=== PATIENT | male | born 1930 | race Caucasian/White ===

== ENCOUNTER 2016-07-25 16:42 | Inpatient (IN) | payer MEDICARE ==
[2016-07-25] MEDS ORDERED: Sodium Chloride 0.9% 1,000 ML IV STA (17:35)
--- NOTE | 2016-07-25 17:48 | ED PDOC ---
HPI: General Adult Time Seen by Provider: 07/25/16 17:27 Chief Complaint (Nursing): Syncope Chief Complaint (Provider): dizziness, near syncope History Per: Patient, Family () Additional Complaint(s): 83 year old male presents to emergency department for evaluation status post having near syncopal episode earlier today. Patient woke up feeling dizzy and when he tried to get up and out of bed his noticed him leaning to one side and he seemed unsteady. Patient sat down before he actually fell. Throughout the morning continued to notice the patient was walking while holding onto the arzate because he felt as if he was going to fall. Patient did not fall or sustain any head injury. One hour prior to arrival, called ambulance and patient was brought here further evaluation. Patient complains of generalized malaise and feels dizzy. He denies any headache, vision changes, chest pain, shortness of breath or dyspnea on exertion. No fever or chills, no dysuria, nausea, vomiting, diarrhea or constipation. No recent travel, no known sick contacts. Past Medical History Reviewed: Historical Data, Nursing Documentation, Vital Signs Vital Signs: Last Vital Signs Temp 100.1 F H 07/25/16 18:07 Pulse 86 07/25/16 16:51 Resp 20 07/25/16 16:51 BP 130/86 07/25/16 16:51 Pulse Ox 97 07/25/16 19:24 - Medical History PMH: Diabetes, HTN - Surgical History Surgical History: Appendectomy Other surgeries: bilateral knee replacement - Family History Family History: States: No Known Family Hx - Living Arrangements Living Arrangements: With Family - Social History Current smoker - smoking cessation education provided: No Alcohol: None Drugs: Denies - Allergies Allergies/Adverse Reactions: Allergies Allergy/AdvReac Type Severity Reaction Status Date / Time No Known Allergies Allergy Verified 07/25/16 16:55 Review of Systems ROS Statement: Except As Marked, All Systems Reviewed And Found Negative Constitutional: Positive for: Other (generalized malaise). Negative for: Fever , Chills Cardiovascular: Negative for: Chest Pain, Palpitations Respiratory: Negative for: Cough, Shortness of Breath Gastrointestinal: Negative for: Nausea, Vomiting Neurological: Positive for: Dizziness. Negative for: Weakness, Numbness, Incoordination, Change in Speech, Confusion, Seizures, Altered Mental Status, Headache Physical Exam - Reviewed Nursing Documentation Reviewed: Yes Vital Signs Reviewed: Yes - Physical Exam Appears: Positive for: Well, Non-toxic, No Acute Distress Head Exam: Positive for: ATRAUMATIC, NORMAL INSPECTION Skin: Positive for: Normal Color. Negative for: Rash Eye Exam: Positive for: Normal appearance, EOMI, PERRL Neck: Positive for: Normal, Painless ROM Cardiovascular/Chest: Positive for: Regular Rate, Rhythm Respiratory: Positive for: Normal Breath Sounds. Negative for: Respiratory Distress Gastrointestinal/Abdominal: Positive for: Soft. Negative for: Tenderness, Distended, Guarding, Rebound Extremity: Positive for: Normal ROM. Negative for: Pedal Edema, Calf Tenderness Neurologic/Psych: Positive for: Alert, outpatient physical therapist assistant II-XII (normal), Oriented. Negative for: Motor/Sensory Deficits, Aphasia, Facial Droop - Laboratory Results Result Diagrams: 07/25/16 18:00 07/25/16 18:00 - ECG O2 Sat by Pulse Oximetry: 97 Pulse Ox Interpretation: Normal - Other Rad Bedside chest X-Ray: Interpreted by Me, Viewed By Me X-Ray Interpretation: no acute infiltrate Medical Decision Making Medical Decision Makin86 year old with dizziness and near syncopal episode. Patient is awake and alert x 3. Low grade temp noted. Plan: EKG CT head CXR CBC CMP Trop IVF Flu swab PO tylenol Disposition - Clinical Impression Clinical Impression: Dizziness, Near syncope - Patient ED Disposition Is Patient to be Admitted: Transfer of Care - Disposition Disposition: Transfer of Care Disposition Time: 20:00 Condition: FAIR Patient Signed Over To: Quan Kitchen Handoff Comments: Signed out pending diagnostic testing results and final disposition Results - Lab Results Lab Results: 07/25/16 07/25/16 07/25/16 18:00 18:00 18:00 WBC 11.0 H RBC 3.81 L Hgb 12.5 Hct 37.4 MCV 98.4 H MCH 32.9 H MCHC 33.4 RDW 12.8 Plt Count 151 MPV 9.0 Neut % (Auto) 72.1 Lymph % (Auto) 17.8 L [place] % (Auto) 9.7 Eos % (Auto) 0.1 Baso % (Auto) 0.3 Neut # 7.9 H Lymph # 2.0 [place] # 1.1 H Eos # 0.0 Baso # 0.0 Sodium 138 Potassium 4.0 Chloride 102 Carbon Dioxide 25 Anion Gap 15 BUN 16 Creatinine 0.8 Est GFR ( Amer) > 60 Est GFR (Non-Af Amer) > 60 Random Glucose 140 H Calcium 9.6 Total Bilirubin 1.1 AST 20 ALT 27 Alkaline Phosphatase 61 Troponin I < 0.0120 Total Protein 7.5 Albumin 4.4 Globulin 3.1 Albumin/Globulin Ratio 1.4 Influenza Typ A,B (EIA) Negative for flu a/b
[2016-07-25 18:16] LABS: ALB/GLOB RATIO 1.4 (1.0-2.1); ALKALINE PHOSPHATASE 61 U/L (38-126); ALT/SGPT 27 U/L (21-72); AST/SGOT 20 U/L (17-59); BILIRUBIN,TOTAL 1.1 mg/dl (0.2-1.3); BLOOD UREA NITROGEN 16 mg/dl (9-20); CALCIUM 9.6 mg/dL (8.4-10.2); CARBON DIOXIDE 25 mmol/L (22-30); CHLORIDE 102 mmol/L (98-107); GFR AFRICAN-AMERICAN > 60; GLUCOSE,RANDOM 140 mg/dL (75-110); SODIUM 138 mmol/l (132-148); TOTAL PROTEIN 7.5 G/DL (6.3-8.2)
[2016-07-25 18:25] LABS: BASO % 0.3 % (0.0-2.0); EOS % 0.1 % (0.0-4.0); HEMATOCRIT 37.4 % (35.0-51.0); LYMPH % 17.8 % (20.0-40.0); MEAN CELL VOLUME 98.4 fl (80.0-94.0); MEAN CORPUSCULAR HEMOGLOBIN 32.9 pg (27.0-31.0); MEAN CORPUSCULAR HGB CONC 33.4 g/dL (33.0-37.0); MONO # 1.1 K/uL (0.0-0.8); MONO % 9.7 % (0.0-10.0); NEUT # 7.9 K/uL (1.8-7.0); NEUT % 72.1 % (50.0-75.0); RED CELL DISTRIBUTION WIDTH 12.8 % (11.5-14.5)
--- NOTE | 2016-07-25 21:00 | CT ---
EXAM: CT Head Without Intravenous Contrast CLINICAL HISTORY: 86 years old, male; Signs and symptoms; Other: Near syncope; Additional info: Dizziness, near syncope TECHNIQUE: Axial computed tomography images of the head/brain without intravenous contrast. This CT exam was performed using one or more of the following dose reduction techniques: automated exposure control, adjustment of the mA and/or kV according to patient size, and/or use of iterative reconstruction technique. Coronal and sagittal reformatted images were created and reviewed. COMPARISON: CT - HEAD^HEAD ROUTINE (ADULT) 11/10/2009 9:44:13 AM FINDINGS: Brain: Mild atrophy. No intracranial hemorrhage. No mass. No definite edema. Ventricles: No hydrocephalus. Bones/joints: No acute fracture. Soft tissues: Unremarkable. Vasculature: Mild atherosclerotic disease of intracranial arteries. Sinuses: Scattered minimal mucosal thickening. Mastoid air cells: No mastoid effusion. Orbits: Unremarkable as visualized. IMPRESSION: 1. No acute intracranial abnormality. 2. Incidental/non-acute findings are described above.
--- NOTE | 2016-07-25 21:45 | ED PDOC ---
- Laboratory Results Result Diagrams: 07/25/16 18:00 07/25/16 18:00 - ECG O2 Sat by Pulse Oximetry: 97 Medical Decision Making Medical Decision Making: pt signed out to me pending CT head which shows no acute abnormality. labs unrevealing. ekg nsr at 86. no acute changes. cxr nad. will admit for observation. pmd Dr. Perez. FP resident will eval. Disposition - Clinical Impression Clinical Impression: Dizziness, Near syncope - POA Present On Arrival: None - Disposition Disposition: Hospitalized as Observation Patient Disposition Time: 21:45 Condition: STABLE
--- NOTE | 2016-07-25 21:57 | ED PDOC ---
NIHSS Stroke Scale - Date/Time Evaluation Performed Date Performed: 07/25/16 Time Performed: 22:05 When Was NIHSS Performed: Baseline - How Severe is the Stroke Level of Consciousness: 0=Alert LOC to Questions: 0=Both comments correct LOC to commands: 0=Obeys both correctly Best Gaze: 0=Normal Visual: 0=No visual loss Facial: 0=Normal Motor Arm - Left: 0=No drift Motor Arm - Right: 0=No drift Motor Leg - Left: 0=No drift Motor Leg - Right: 0=No drift Limb Ataxia: 0=Absent Sensory: 0=Normal Best Language: 0=No aphasia Dysarthia: 0=Normal articulation Extinction & Inattention (Neglect): 0=Normal, no object Score: 0 rTPA Inclusion/Exclusion - Inclusion Criteria for Altepase Patient is 18 years or Older: Yes The Clinical Diagnosis of Ischemic Stroke That is Causing a Potentially Disabling Neurological Deficit: No Time of Onset is Well Established to be Less Than 270 Minute Before Treatment Would Begin: No Risk/Benefit Discussed With Patient/Family Member Present: Yes - Exclusion Criteria for Altepase Uncontrolled Hypertension at Time of Treatment (Systolic BP above 185 or Diastolic BP above 110 mmHg): No Active Internal Bleeding: No Known Bleeding Diathesis Including but Not Limited to: Platelets Below 100,000/ mm,PTT Above 40 sec After Heparin Use, Current Use of Oral Anitcoagulant With INR Greater Than 1.7 or PT Greater Than 15 secs: No Evidence of an Intracranial Hemorrhage: No Evidence of Major Acute Infarct With Signs Greater Than 1/3 MCA Territory: No Suspicion of Subarachnoid Hemorrhage on Pretreatment Evaluation Even if CT Head Negative For Hemorrhage: No - Warning to TPA With Conditions Following Conditions Weighed Against Anticipated Benefit: No Additional Condition (For 3-4.5 Hour Window): Age Greater Than 80 Past Medical History Vital Signs: Last Vital Signs Temp 100.1 F H 07/25/16 18:07 Pulse 86 07/25/16 16:51 Resp 20 07/25/16 16:51 BP 130/86 07/25/16 16:51 Pulse Ox 97 07/25/16 21:45 - Medical History PMH: Diabetes, HTN, Hypercholesterolemia - Surgical History Surgical History: Appendectomy Other surgeries: bilateral knee replacement - Family History Family History: States: No Known Family Hx - Social History Current smoker - smoking cessation education provided: No Alcohol: None Drugs: Denies - Allergies Allergies/Adverse Reactions: Allergies Allergy/AdvReac Type Severity Reaction Status Date / Time No Known Allergies Allergy Verified 07/25/16 16:55 - Laboratory Results Result Diagrams: 07/25/16 18:00 07/25/16 18:00 - ECG O2 Sat by Pulse Oximetry: 97 Disposition - Clinical Impression Clinical Impression: Dizziness, Near syncope - Disposition Disposition: Transfer of Care Disposition Time: 21:45 Condition: STABLE - POA Present On Arrival: None
--- NOTE | 2016-07-25 22:24 | CP.PCM.HP ---
Addendum entered and electronically signed by Cesia De Jesus MD 07/26/16 06:06: Please note: head CT done in ED show no evidence of acute disease or hemorrhage Original Note: <Cesia De Jesus - Last Filed: 07/25/16 22:58> History of Present Illness - History of Present Illness History of Present Illness: Pt is a 83y/o male with pmhx of non-insulin dependent diabetes, and Hyperlipidemia who presents to emergency department for evaluation following multiple near syncopal episode earlier today. Patient woke up feeling dizzy and when he tried to get up and out of bed his noticed him leaning to one side and he seemed unsteady. Patient sat down before he actually fell. as they were walking to the bus so the could make it to the eye appointment, noticed pt was walking a little different, so she told pt to go back home and get some rest. pt's report the lady at the [facility] told her she saw her on camera walking very strangely this morning, and he almost fell but did not. Patient did not fall or sustain any head injury. Patient complains of generalized malaise and feels dizzy. He denies any headache , vision changes, chest pain, shortness of breath or dyspnea on exertion. No fever or chills, no dysuria, nausea, vomiting, diarrhea or constipation. No recent travel, no known sick contacts. Present on Admission - Present on Admission Any Indicators Present on Admission: Yes History of DVT/PE: No History of Uncontrolled Diabetes: Yes Review of Systems - Review of Systems All systems: reviewed and no additional remarkable complaints except Review of Systems: per HPI Past Patient History - Past Social History Alcohol: None Drugs: Denies - CARDIAC Hx Hypercholesterolemia: Yes Hx Hypertension: Yes - ENDOCRINE/METABOLIC Hx Diabetes Mellitus Type 2: Yes - GENITOURINARY/GYNECOLOGICAL Hx Prostate Problems: Yes - PSYCHIATRIC Hx Substance Use: No - SURGICAL HISTORY Hx Appendectomy: Yes Meds Allergies/Adverse Reactions: Allergies Allergy/AdvReac Type Severity Reaction Status Date / Time No Known Allergies Allergy Verified 07/25/16 16:55 Physical Exam - Constitutional Appears: No Acute Distress - Head Exam Head Exam: NORMOCEPHALIC - Eye Exam Eye Exam: Normal appearance Pupil Exam: NORMAL ACCOMODATION - ENT Exam ENT Exam: Mucous Membranes Moist - Neck Exam Neck exam: Positive for: Normal Inspection - Respiratory Exam Respiratory Exam: Clear to Auscultation Bilateral, NORMAL BREATHING PATTERN. absent: Rhonchi, Wheezes - Cardiovascular Exam Cardiovascular Exam: REGULAR RHYTHM, +S1, +S2 - GI/Abdominal Exam GI & Abdominal Exam: Normal Bowel Sounds, Soft. absent: Tenderness - Extremities Exam Extremities exam: Negative for: calf tenderness, pedal edema - Neurological Exam Neurological exam: Alert, CN II-XII Intact, Oriented x3 - Skin Skin Exam: Normal Color Results - Vital Signs Recent Vital Signs: Last Vital Signs Temp 98.0 F 07/25/16 22:16 Pulse 84 07/25/16 22:16 Resp 18 07/25/16 22:16 BP 140/68 07/25/16 22:16 Pulse Ox 96 07/25/16 22:16 - Labs Result Diagrams: 07/25/16 18:00 07/25/16 18:00 Assessment & Plan - Assessment and Plan (Free Text) Assessment: 86 y/o male with history of HTN, HLD and non-insulin dependent type II diabetes being admitted for dizziness Plan: Dizziness vs TIA NIHSS score 0 not hypoglycemic ordered Carotid ultrasound f/u results lipid panel, f/u results consider Neurology consult Type II Non-Insulin Dependent diabetes Continue Metformin 1000mg BID accucheck BPH resume home medication- finastride 5 mg monitor HLD Atorvastatin 20mg daily diet- diabetic heart healthy dvt prophylaxis- lovenox 40mg SC <Ggae Turcios - Last Filed: 07/26/16 06:55> Results - Vital Signs Recent Vital Signs: Last Vital Signs Temp 98 F 07/26/16 05:00 Pulse 78 07/26/16 05:00 Resp 20 07/26/16 05:00 BP 140/81 07/26/16 05:00 Pulse Ox 96 07/26/16 05:00 - Labs Result Diagrams: 07/25/16 18:00 07/25/16 18:00 Labs: Laboratory Results - last 24 hr 07/25/16 07/26/16 07/26/16 23:10 00:04 05:19 POC Glucose (mg/dL) 136 H 127 H Urine Color Yellow Urine Clarity Clear Urine pH 6.0 Ur Specific [place] [employer] 1.016 Urine Protein Negative Urine Glucose (UA) Neg Urine Ketones Negative Urine Blood Negative Urine Nitrate Negative Urine Bilirubin Negative Urine Urobilinogen 0.2-1.0 Ur Leukocyte Esterase Neg Urine RBC (Auto) 1 Urine Microscopic WBC < 1 Attending/Attestation - Attestation I have personally seen and examined this patient.: Yes I have fully participated in the care of the patient.: Yes I have reviewed all pertinent clinical information: Yes
[2016-07-25 23:18] LABS: RBC URINE 1 /hpf (0-3); URINE BILIRUBIN NEGATIVE (NEGATIVE); URINE BLOOD NEGATIVE (NEGATIVE); URINE COLOR YELLOW (YELLOW); URINE GLUCOSE (UA) NEG (Normal); URINE KETONE NEGATIVE (NEGATIVE); URINE LEUKOCYTE ESTERASE NEG Leu/uL (Negative); URINE PROTEIN NEGATIVE (NEGATIVE); URINE UROBILINOGEN 0.2-1.0 mg/dL (0.2-1.0); WBC URINE < 1 /hpf (0-5)
[2016-07-26 07:41] LABS: ALB/GLOB RATIO 1.4 (1.0-2.1); ALKALINE PHOSPHATASE 50 U/L (38-126); ALT/SGPT 28 U/L (21-72); AST/SGOT 19 U/L (17-59); BILIRUBIN,TOTAL 1.3 mg/dl (0.2-1.3); BLOOD UREA NITROGEN 13 mg/dl (9-20); CALCIUM 9.2 mg/dL (8.4-10.2); CARBON DIOXIDE 27 mmol/L (22-30); CHLORIDE 103 mmol/L (98-107); CHOLESTEROL 123 mg/dL (0-199); GFR AFRICAN-AMERICAN > 60; GLUCOSE,RANDOM 135 mg/dL (75-110); POTASSIUM 4.2 MMOL/L (3.6-5.0); SODIUM 140 mmol/l (132-148); TOTAL PROTEIN 6.8 G/DL (6.3-8.2)
[2016-07-26 07:49] LABS: HEMATOCRIT 34.9 % (35.0-51.0); MEAN CELL VOLUME 96.1 fl (80.0-94.0); MEAN CORPUSCULAR HEMOGLOBIN 33.3 pg (27.0-31.0); MEAN CORPUSCULAR HGB CONC 34.7 g/dL (33.0-37.0); RED CELL DISTRIBUTION WIDTH 12.9 % (11.5-14.5); WHITE BLOOD COUNT 9.2 K/uL (4.8-10.8)
[2016-07-26] MEDS: Enoxaparin 40 mg Syringe SC SCH (09:41)
--- NOTE | 2016-07-26 09:57 | CP.PCM.PN ---
<Uma Nelson - Last Filed: 07/26/16 17:12> Subjective - Date & Time of Evaluation Date of Evaluation: 07/26/16 Time of Evaluation: 07:00 - Subjective Subjective: Patient was seen and examined at bedside. Patient had an uneventful night. Denies chest pain, SOB, dizziness, tinnitus, abdominal pain, palpitation or other complains at this evaluation. Objective - Vital Signs/Intake and Output Vital Signs (last 24 hours): Temp Pulse Resp BP Pulse Ox 98.5 F 72 20 145/67 96 07/26/16 08:20 07/26/16 08:20 07/26/16 08:20 07/26/16 08:20 07/26/16 08:20 - Medications Medications: Current Medications Aspirin (Aspirin Chewable) 81 mg PO DAILY [facility] Last Admin: 07/26/16 09:41 Dose: 81 mg Atorvastatin Calcium (Lipitor) 20 mg PO DAILY [facility] Last Admin: 07/26/16 09:41 Dose: 20 mg Enoxaparin Sodium (Lovenox) 40 mg SC DAILY [facility] PRN Reason: Protocol Last Admin: 07/26/16 09:41 Dose: 40 mg Finasteride (Proscar) 5 mg PO DAILY [facility] Last Admin: 07/26/16 09:41 Dose: 5 mg Metformin HCl (Glucophage) 1,000 mg PO BID [facility] Last Admin: 07/26/16 09:41 Dose: 1,000 mg - Labs Labs: 07/26/16 06:00 07/26/16 05:40 - Constitutional Appears: Non-toxic, No Acute Distress - ENT Exam ENT Exam: Mucous Membranes Moist - Respiratory Exam Respiratory Exam: Clear to Ausculation Bilateral, NORMAL BREATHING PATTERN - Cardiovascular Exam Cardiovascular Exam: REGULAR RHYTHM, +S1, +S2 - GI/Abdominal Exam GI & Abdominal Exam: Soft, Normal Bowel Sounds. absent: Guarding, Rigid, Tenderness - Extremities Exam Extremities Exam: Normal Inspection. absent: Calf Tenderness, Pedal Edema - Neurological Exam Neurological Exam: Alert, Awake, Oriented x3 Neuro motor strength exam: Left Upper Extremity: 5, Right Upper Extremity: 5, Left Lower Extremity: 5, Right Lower Extremity: 5 - Psychiatric Exam Psychiatric exam: Normal Affect, Normal Mood - Skin Skin Exam: Dry, Intact, Normal Color Assessment and Plan - Assessment and Plan (Free Text) Assessment: 86 y/o male with PMHx of NIDDM and Hyperlipidemia admitted with dizziness and unsteady gait for one day. Plan: Dizziness and unsteady gait R/O TIA -Fall precautions -Neuro check every 2 hours -CBC: H/H: 12.1/34.9 -CMP: WNL -F/U carotid/vertebral ultrasound -Neurology consult appreciated. Dr. Miranda. F/U recommendations -Head CT w/o contrast in ED showed: no intracraneal hemorrhage, and no acute changes -Physical therapy evaluation -turn out worker for home health care eval DM type II Non insulin dependednt -Accu-check ACHS -Hold Home Metformin for now -Start LDSS insulin -F/U lipid profile Will monitor DVT prophylaxis Lovenox 40 mg SC <Gage Turcios - Last Filed: 07/27/16 06:45> Objective - Vital Signs/Intake and Output Vital Signs (last 24 hours): Temp Pulse Resp BP Pulse Ox 98.8 F 83 20 138/66 96 07/27/16 05:00 07/27/16 05:00 07/27/16 05:00 07/27/16 05:00 07/27/16 05:00 Intake and Output: 07/26/16 07/27/16 18:59 06:59 Intake Total 650 Balance 650 - Medications Medications: Current Medications Atorvastatin Calcium (Lipitor) 20 mg PO DAILY [facility] Last Admin: 07/26/16 09:41 Dose: 20 mg Clopidogrel Bisulfate (Plavix) 75 mg PO DAILY [facility] Dextrose (Dextrose 50% Inj) 0 ml IV STAT PRN; Protocol PRN Reason: Hyglycemia Protocol Dextrose (Glutose 15) 0 gm PO ONCE PRN; Protocol PRN Reason: Hypoglycemia Protocol Enoxaparin Sodium (Lovenox) 40 mg SC DAILY [facility] PRN Reason: Protocol Last Admin: 07/26/16 09:41 Dose: 40 mg Finasteride (Proscar) 5 mg PO DAILY [facility] Last Admin: 07/26/16 09:41 Dose: 5 mg Folic Acid (Folic Acid) 1 mg PO DAILY [facility] Glucagon (Glucagen Diagnostic Kit) 0 mg IM STAT PRN; Protocol PRN Reason: Hypoglycemia Protocol Insulin Human Regular (Humulin R) 0 units SC [facility] PRN Reason: Protocol Last Admin: 07/26/16 22:26 Dose: Not Given Metformin HCl (Glucophage) 1,000 mg PO BID [facility] Last Admin: 07/26/16 09:41 Dose: 1,000 mg Attending/Attestation - Attestation I have personally seen and examined this patient.: Yes I have fully participated in the care of the patient.: Yes I have reviewed all pertinent clinical information, including history, physical exam and plan: Yes
[2016-07-26] MEDS ORDERED: Dextrose 50% SYRINGE Inj (50 ml) IV PRN (09:59)
[2016-07-26] MEDS ORDERED: Glucagon Recombinant 1 mg Inj IM PRN (09:59)
[2016-07-26] MEDS: Insulin Regular 100 units/ml SC SCH ×3 (11:30→22:26)
--- NOTE | 2016-07-26 13:39 | RAD ---
HISTORY: clearance COMPARISON: No prior. FINDINGS: LUNGS: No active pulmonary disease. PLEURA: No significant pleural effusion identified, no pneumothorax apparent. CARDIOVASCULAR: Normal. OSSEOUS STRUCTURES: No significant abnormalities. VISUALIZED UPPER ABDOMEN: Normal. OTHER FINDINGS: None. IMPRESSION: No active disease.
--- NOTE | 2016-07-26 15:33 | US ---
PROCEDURE: Duplex ultrasound of the carotid and vertebral arteries. HISTORY: dizziness vs TIA COMPARISON: 11/10/2009.. TECHNIQUE: Grayscale, color Doppler and spectral Doppler assessment of the carotid system bilaterally. This includes common carotid, internal carotid arteries Vertebral artery assessment with respect to direction of flow (antegrade or retrograde) FINDINGS: RIGHT carotid system: Assessment of plaque: Heterogeneous plaque formation. Peak systolic ICA velocity: 95.1 cm/sec End-diastolic velocity: 20.8 cm/sec ICA/CCA ratio: 1.1 Vertebral artery flow: Antegrade LEFT carotid system: Assessment of plaque: Heterogeneous plaque formation. Peak systolic ICA velocity: 125.6 cm/sec End-diastolic velocity: 20.7 cm/sec ICA/CCA ratio: 0.8 Vertebral artery flow: Antegrade IMPRESSION: Right ICA degree of stenosis: Less than 50%. No significant interval change compared to the prior examination(s). Left ICA degree of stenosis: 50- 69%. This is progressive disease compared to the prior study from November 10, 2009. Reference Internal Carotid Artery (ICA) Peak Systolic Velocity (PSV) for above: 1. Less than 50% stenosis less than 125 cm/s peak systolic velocity 2. 50-69% stenosis 125-230cm/s peak systolic velocity 3. Greater than 70% but less than near occlusion greater than 230 cm/s peak systolic velocity
--- NOTE | 2016-07-26 20:03 | CON ---
DATE: 07/26/2016 ATTENDING PHYSICIAN: Gage Turcios MD The patient's room #405, bed 2. REASON FOR CONSULTATION: Near syncopal attack. CHIEF COMPLAINT: The patient was brought in to [facility] with a history of frequent tendency to fall. No real fall happened. No history of involuntary movements, no history of focal weakness as per the documentation. From neurological point of view, I was called in to evaluate him for further management. HISTORY OF PRESENT ILLNESS: The patient is a young looking 86-year-old right handed male presenting with lightheadedness and tendency to fall that made him to fall on his right side before he fell, he sat on the chair. The patient's also documented he has difficulty in walking. The patient's saw her on camera walking very strangely this morning. He almost fell but not. He did not have any sustained injury. At present, the patient is complaining of no headache, no visual or bulbar dysfunction. He denies any focal weakness; however, he admits inability to walk good, tendency to fall. No history of involuntary movements, no history of loss of consciousness. No history of bowel or bladder incontinence. PAST MEDICAL HISTORY: Ran-oquiyti-syfrbexxj diabetes mellitus, dyslipidemia, hypertension. PERSONAL HISTORY: Denies smoking or alcohol use. History of prostate problem in the past. REVIEW OF SYSTEMS: As per H and P. MEDICATIONS: Glucagon, metformin, insulin, atorvastatin, Lovenox, clopidogrel, Proscar. PHYSICAL EXAMINATION: VITAL SIGNS: Blood pressure 154/71 minute, mean arterial pressure of 98, respiratory rate 18, temperature 99.1 degrees Fahrenheit, pulse rate 83 runs to 92. NECK: Supple. No carotid bruit. HEART SOUNDS: mild tachycardia with a systolic murmur. EXTREMITIES: No edema in legs. NEUROLOGIC EXAMINATION: MENTAL STATUS EXAMINATION: He is awake, alert, oriented to person and place. At times he seemed to be confused. He is calling her medical secretary receptionist. Then he relates he is in the hospital. He follows 2-step commands. No right and left confusion. Speech is intact. CRANIAL NERVE EXAMINATION: Visual field intact. Pupils react to light. Extraocular movement decreased in all directions. No facial sensory deficit. Mild facial asymmetry manifesting as a flattening of the right nasolabial fold. Hearing is normal. Tongue is midline. Good gag. MOTOR: On outstretched hand with eyes closed, significant drift noted on the right upper extremity with a pronation. However, he was able to lift both lower extremities against gravity. DEEP TENDON REFLEXES: Absent throughout. Plantars are equivocal response on the right side; left side was downgoing. SENSORY EXAMINATION: Responds to pain symmetrically on both sides. 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 COORDINATION: Wbrsel-gy-ojug testing showed mild dysmetria on the right side to compare with the left side. GAIT: He was able to get out of the bed without any assistance. However, his walking, he is not confident on walking as well as marching in one spot. He was leaning to his right side. 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 This is probably ischemic process related to his underlying diabetes mellitus and hypertension. However, other possible causes, cardioembolic phenomenon versus carotid artery disease should be ruled out. WORKUP: A CT of the head reviewed by me, no acute pathologies noted except mild periventricular ischemic changes noted. Carotid artery sonogram showed progression severe significant of left carotid artery to compare with the previous study. BLOOD WORKUP: WBC 9.2, hemoglobin 12.1, hematocrit 34.9, platelets 152. Sodium 140, potassium 4.2, chloride 103, bicarbonate 27, GFR more than 60, glucose 178. Cholesterol 123, LDL 55, HDL 45. Urinalysis is negative. RECOMMENDATIONS: 1. Keep him on bedrest. head in elevation. 2. Continue hydration and keep mean arterial pressure around 100. 3. Agree with Plavix with statin and FIDEL inhibitor or angiotensin receptor blockers. 4. MRI of the brain, echocardiogram and electroencephalogram is also recommended to rule out any electrographic paroxysmal activities. If the patient is stable for the next 24-hour period, the patient should be gotten out of the bed and physical therapy should be entertained as early as possible. Regarding his cardiac history, I would recommend him to be evaluated by medical assistant as well. The patient's condition has been discussed with him extensively. The patient understands his problem. Alexx Miranda MD cc: [id number] TT: 07/26/2016 20:03:10 Confirmation # [id number] Dictation # [id number] [id number]
[2016-07-26 21:44] LABS: THYROID STIMULATING HORMONE 2.44 mIU/ML (0.46-4.68)
[2016-07-27 04:45] LABS: HOMOCYSTEINE 12.3 umol/L (<11.4)
[2016-07-27] MEDS: Insulin Regular 100 units/ml SC SCH ×4 (07:06→22:22)
[2016-07-27] MEDS: Enoxaparin 40 mg Syringe SC SCH (08:53)
--- NOTE | 2016-07-27 09:26 | CP.PCM.PN ---
Subjective - Date & Time of Evaluation Date of Evaluation: 07/27/16 Time of Evaluation: 06:55 - Subjective Subjective: Patient was seen and examined at bedside. Patient had an uneventful night. Patient denies dizziness, headaches, chest pain, SOB, nausea, vomiting, abdominal pain or other complains. Objective - Vital Signs/Intake and Output Vital Signs (last 24 hours): Temp Pulse Resp BP Pulse Ox 98.5 F 85 20 137/68 95 07/27/16 08:06 07/27/16 08:06 07/27/16 08:06 07/27/16 08:06 07/27/16 08:06 - Medications Medications: Current Medications Atorvastatin Calcium (Lipitor) 20 mg PO DAILY [facility] Last Admin: 07/27/16 08:53 Dose: 20 mg Clopidogrel Bisulfate (Plavix) 75 mg PO DAILY [facility] Last Admin: 07/27/16 08:54 Dose: 75 mg Dextrose (Dextrose 50% Inj) 0 ml IV STAT PRN; Protocol PRN Reason: Hyglycemia Protocol Dextrose (Glutose 15) 0 gm PO ONCE PRN; Protocol PRN Reason: Hypoglycemia Protocol Enoxaparin Sodium (Lovenox) 40 mg SC DAILY [facility] PRN Reason: Protocol Last Admin: 07/27/16 08:53 Dose: 40 mg Finasteride (Proscar) 5 mg PO DAILY [facility] Last Admin: 07/27/16 08:54 Dose: 5 mg Folic Acid (Folic Acid) 1 mg PO DAILY [facility] Last Admin: 07/27/16 08:53 Dose: 1 mg Glucagon (Glucagen Diagnostic Kit) 0 mg IM STAT PRN; Protocol PRN Reason: Hypoglycemia Protocol Insulin Human Regular (Humulin R) 0 units SC ACHS [facility] PRN Reason: Protocol Last Admin: 07/27/16 07:06 Dose: 1 u Metformin HCl (Glucophage) 1,000 mg PO BID [facility] Last Admin: 07/26/16 09:41 Dose: 1,000 mg - Constitutional Appears: Non-toxic, No Acute Distress - ENT Exam ENT Exam: Mucous Membranes Moist - Respiratory Exam Respiratory Exam: Clear to Ausculation Bilateral, NORMAL BREATHING PATTERN - Cardiovascular Exam Cardiovascular Exam: REGULAR RHYTHM, +S1, +S2 - GI/Abdominal Exam GI & Abdominal Exam: Soft, Normal Bowel Sounds. absent: Guarding, Rigid, Tenderness - Extremities Exam Extremities Exam: Normal Inspection. absent: Calf Tenderness, Pedal Edema - Neurological Exam Neurological Exam: Alert, Awake, Oriented x3 - Skin Skin Exam: Dry, Intact, Normal Color Assessment and Plan - Assessment and Plan (Free Text) Assessment: 86 y/o male with PMHx of NIDDM and Hyperlipidemia admitted with dizziness and unsteady gait for one day. Plan: Dizziness and unsteady gait R/O TIA -Keep patient bedrest, and head in elevation -Fall precautions -Neuro check every 2 hours -CBC: H/H: 12.1/34.9 -CMP: WNL -Carotid/vertebral ultrasound showed Right ICA< 50 % , Left ICA 50-69 % -Head CT w/o contrast in ED showed: no intracraneal hemorrhage, and no acute changes -F/U Brain MRI results -F/U EEG results -F/U Echocardiogram, recommended by Neuro -Neurology consult appreciated. Dr. Miranda. F/U recommendations -Cardiology consult appreciated. Dr. Todd. 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
--- NOTE | 2016-07-27 11:53 | CP.PCM.CON ---
History of Present Illness - History of Present Illness History of Present Illness: Full Note Dictated. Ataxia (? cerebellar dysfunction/? Posterior Column dysfunction) DM(II) H/O Bilat Knee Replacement Stable from Cardiac point of view. Past Patient History - Past Medical History & Family History Past Medical History?: Yes - Past Social History Smoking Status: Former Smoker - CARDIAC Hx Hypercholesterolemia: Yes - PULMONARY Hx Respiratory Disorders: No - NEUROLOGICAL Hx Neurological Disorder: No - HEENT Hx HEENT Problems: No - RENAL Hx Chronic Kidney Disease: No - ENDOCRINE/METABOLIC Hx Diabetes Mellitus Type 2: Yes - HEMATOLOGICAL/ONCOLOGICAL Hx Blood Disorders: No Hx AIDS: No Hx Human Immunodeficiency Virus (HIV): No - INTEGUMENTARY Hx Dermatological Problems: No - MUSCULOSKELETAL/RHEUMATOLOGICAL Hx Musculoskeletal Disorders: No Hx Falls: No - GASTROINTESTINAL Hx Gastrointestinal Disorders: No - GENITOURINARY/GYNECOLOGICAL Hx Prostate Problems: Yes - PSYCHIATRIC Hx Substance Use: No - SURGICAL HISTORY Hx Appendectomy: Yes Hx Orthopedic Surgery: Yes (B/L Knee replacements) - ANESTHESIA Hx Anesthesia: Yes Hx Anesthesia Reactions: No Meds Allergies/Adverse Reactions: Allergies Allergy/AdvReac Type Severity Reaction Status Date / Time No Known Allergies Allergy Verified 07/25/16 16:55 - Medications Medications: Current Medications Atorvastatin Calcium (Lipitor) 20 mg PO DAILY [facility] Last Admin: 07/27/16 08:53 Dose: 20 mg Clopidogrel Bisulfate (Plavix) 75 mg PO DAILY [facility] Last Admin: 07/27/16 08:54 Dose: 75 mg Dextrose (Dextrose 50% Inj) 0 ml IV STAT PRN; Protocol PRN Reason: Hyglycemia Protocol Dextrose (Glutose 15) 0 gm PO ONCE PRN; Protocol PRN Reason: Hypoglycemia Protocol Enoxaparin Sodium (Lovenox) 40 mg SC DAILY [facility] PRN Reason: Protocol Last Admin: 07/27/16 08:53 Dose: 40 mg Finasteride (Proscar) 5 mg PO DAILY [facility] Last Admin: 07/27/16 08:54 Dose: 5 mg Folic Acid (Folic Acid) 1 mg PO DAILY [facility] Last Admin: 07/27/16 08:53 Dose: 1 mg Glucagon (Glucagen Diagnostic Kit) 0 mg IM STAT PRN; Protocol PRN Reason: Hypoglycemia Protocol Insulin Human Regular (Humulin R) 0 units SC ACHS [facility] PRN Reason: Protocol Last Admin: 07/27/16 07:06 Dose: 1 u Metformin HCl (Glucophage) 1,000 mg PO BID [facility] Last Admin: 07/26/16 09:41 Dose: 1,000 mg Results - Vital Signs Recent Vital Signs: Last Vital Signs Temp 98.5 F 07/27/16 08:06 Pulse 85 07/27/16 09:00 Resp 20 07/27/16 08:06 BP 137/68 07/27/16 08:06 Pulse Ox 95 07/27/16 08:06 - Labs Result Diagrams: 07/26/16 06:00 07/26/16 05:40 Labs: Laboratory Results - last 24 hr 07/26/16 07/26/16 07/26/16 20:00 20:00 20:00 POC Glucose (mg/dL) Hemoglobin A1c 7.2 H Vitamin B12 341 Homocysteine TSH 3rd Generation 2.44 HIV-1 Ab Rapid Screen Non reactive 07/26/16 07/26/16 07/27/16 20:00 21:12 05:16 POC Glucose (mg/dL) 195 H 193 H Hemoglobin A1c Vitamin B12 Homocysteine 12.3 H TSH 3rd Generation HIV-1 Ab Rapid Screen 07/27/16 11:20 POC Glucose (mg/dL) 267 H Hemoglobin A1c Vitamin B12 Homocysteine TSH 3rd Generation HIV-1 Ab Rapid Screen
--- NOTE | 2016-07-27 12:35 | MRI ---
PROCEDURE: MRI BRAIN WITHOUT CONTRAST HISTORY: r/o CAFE LEAD stroke COMPARISON: Comparison made with prior CT scan brain 07/25/2016 TECHNIQUE: Multiplanar, multisequence MR images of the brain were obtained without intravenous contrast enhancement. FINDINGS: HEMORRHAGE: No acute parenchymal, subarachnoid or extra-axial hemorrhage on gradient echo weighted sequence. DWI: No evidence of an acute or early subacute infarctio seen on diffusion-weighted imaging. . BRAIN PARENCHYMA: Mild diffuse/confluent chronic periventricular white matter ischemic changes seen extending peripherally into the deep and to a lesser degree subcortical white matter both cerebral hemispheres. Changes are most pronounced and conspicuous in the parietal regions. There is also small nonspecific focal area of increased T2 signal seen in the right posterior lateral basal ganglia possibly representing a tiny chronic lacune. VENTRICLES: Moderate central volume loss evidenced by disproportionate enlargement of the ventricles as compared sulci. CRANIUM: There are no acute calvarial abnormalities. ORBITS: Orbits and contents grossly unremarkable. . PARANASAL SINUSES/MASTOIDS: Susceptibility artifact presumably arising from dental amalgam partially obscures the maxillofacial skeleton including the right and to a lesser degree left maxillary antra. VASCULAR SYSTEM: Visualized major vascular flow voids at skull base are patent. OTHER FINDINGS: Note made of susceptibility artifact presumably arising from dental amalgam which partially obscures the anterior maxillofacial skeleton IMPRESSION: No acute intracranial hemorrhage or infarct. Mild chronic white matter ischemic changes. 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 Moderate central volume loss.
--- NOTE | 2016-07-27 12:55 | CON ---
DATE: 07/27/2016 He is hospitalized under Dr. Turcios's care in room 405, bed 2. HISTORY OF PRESENT ILLNESS: This 86-year-old man is known to me from having been examined in 12/2014 for easy fatigability. He has been a diabetic for approximately 7 years now and had reported at zainab t time a sense of tiredness on walking 4-5 blocks while he used to walk approximately 10-15 blocks a few months before. There had never been chest pain or myocardial infarction or congestive cardiac fa ilure. He was never a smoker. The patient has had bilateral knee replacements and an attempt to do a stress test in 12/2014 required termination of the test due to knee pains and his effort tolerance could not be assessed. The rest of his cardiovascular examination at that time was quite normal. Th e patient was brought to the hospital 2 days back after abruptly developing a sense of an unsteady wa lk and the patient apparently was even unsteady while sitting on the bed. There is no visual or spee ch deficit. There is no motor deficit. There are no palpitations or pedal edema or orthopnea. PHYSICAL EXAMINATION: GENERAL: Shows an elderly man who is alert and awake, but an attempt to stand up is not very success ful because of an extremely sense of unsteadiness. The patient cannot stand on his legs unassisted o r unsupported. His speech is quite normal. There is no motor deficit. VITAL SIGNS: His pulse was 68 beats per minute, regular, and his blood pressure was 140/70 mmHg. NECK: Jugular venous pressure was not elevated. EXTREMITIES: There was no edema over his lower extremity. The pedal pulses were well felt. There w ere no carotid bruits. HEART: The apex was in the 5th space. The first and second heart sounds were normal. There was no murmur, no gallop. LUNGS: No rales. ABDOMEN: Soft. Liver and spleen were not palpable. His electrocardiogram showed sinus rhythm with poor R-wave progression which probably is because of e rroneous lead placement on the chest. No ST-T changes of recent myocardial infarction were evident. His electrocardiogram compared to his EKG of 12/2014 does not show any significant change. LABORATORY DATA: Shows a hemoglobin and hematocrit of 12.1 g and 34.9% respectively. His WBC count and platelet counts were within normal limits. His BUN and creatinine were 13 and 0.9 mg percent. H is electrolytes were normal. IMPRESSION: At this time is ataxia, possibly due to cerebellar dysfunction or posterior column dysfu nction in a diabetic. At this juncture, he is stable from cardiovascular point of view. Valdo Todd MD cc: [id number] TT: 07/27/2016 12:54:24 Confirmation # [id number] Dictation # [id number]
--- NOTE | 2016-07-27 17:48 | CARD ---
APPROVED REPORT EXAM: Two-dimensional and M-mode echocardiogram with Doppler and color Doppler. Other Information Quality : AverageRhythm : NSR INDICATION Syncope 2D DIMENSIONS IVSd1.12 (0.7-1.1cm)LVDd4.22 (3.9-5.9cm) LVOT Diameter2.32 (1.8-2.4cm)PWd1.19 (0.7-1.1cm) IVSs1.63 (0.8-1.2cm)LVDs2.86 (2.5-4.0cm) FS (%) 32.2 %PWs1.18 (0.8-1.2cm) M-Mode DIMENSIONS Left Atrium (MM)3.88 (2.5-4.0cm)IVSd1.13 (0.7-1.1cm) Aortic Root3.78 (2.2-3.7cm)LVDd6.63 (4.0-5.6cm) Aortic Cusp Exc.2.00 (1.5-2.0cm)PWd1.13 (0.7-1.1cm) IVSs1.56 cmFS (%) 47 % LVDs3.53 (2.0-3.8cm)PWs1.47 cm Mitral Valve MV E Tsilquaq70.9cm/sMV DECEL UNSQ969rlID A Qnewlzlk07.1cm/s MV XDY77tiR/A ratio0.6MVA (PHT)2.27cm2 TDI E/Lateral E'0.0E/Medial E'0.0 LEFT VENTRICLE The left ventricle is normal size. There is normal left ventricular wall thickness. The left ventricular function is normal. The left ventricular ejection fraction is 60-65% There is normal LV segmental wall motion. Transmitral Doppler flow pattern is Grade I-abnormal relaxation pattern. No left ventricle thrombus noted on this study. There is no ventricular septal defect visualized. There is no left ventricular aneurysm. There is no mass noted in the left ventricle. RIGHT VENTRICLE The right ventricle is normal size. There is normal right ventricular wall thickness. The right ventricular systolic function is normal. ATRIA The left atrium size is normal. The right atrium size is normal. The interatrial septum is intact with no evidence for an atrial septal defect. AORTIC VALVE The aortic valve is moderately sclerotic. There is trace aortic regurgitation. There is no aortic valvular stenosis. There is no aortic valvular vegetation. MITRAL VALVE The mitral valve is normal in structure and function. There is no evidence of mitral valve prolapse. There is no mitral valve stenosis. There is no mitral valve regurgitation noted. TRICUSPID VALVE The tricuspid valve is normal in structure and function. There is no tricuspid valve regurgitation noted. There is no tricuspid valve prolapse or vegetation. There is no tricuspid valve stenosis. PULMONIC VALVE The pulmonary valve is normal in structure and function. There is no pulmonic valvular regurgitation. There is no pulmonic valvular stenosis. GREAT VESSELS The aortic root is normal in size. The ascending aorta is normal in size. The IVC is normal in size and collapses >50% with inspiration. PERICARDIAL EFFUSION The pericardium appears normal. There is no pleural effusion. <Conclusion> Normal LV systolic function Aortic Valve Sclerosis Trace Aortic Insufficiency
--- NOTE | 2016-07-27 18:57 | CARD ---
APPROVED REPORT EKG Measurement Heart [id number] <Conclusion> Normal sinus rhythm Possible Anterior infarct, age undetermined Abnormal ECG
[2016-07-28] MEDS: Insulin Regular 100 units/ml SC SCH ×4 (06:33→22:28)
[2016-07-28 07:50] LABS: BASO % 0.3 % (0.0-2.0); EOS % 0.2 % (0.0-4.0); HEMATOCRIT 35.7 % (35.0-51.0); LYMPH # 1.6 K/uL (1.0-4.3); MEAN CELL VOLUME 96.8 fl (80.0-94.0); MEAN CORPUSCULAR HEMOGLOBIN 33.3 pg (27.0-31.0); MEAN CORPUSCULAR HGB CONC 34.4 g/dL (33.0-37.0); MEAN PLATELET VOLUME 8.6 fl (7.2-11.7); MONO % 10.5 % (0.0-10.0); NEUT # 7.2 K/uL (1.8-7.0); RED CELL DISTRIBUTION WIDTH 12.8 % (11.5-14.5); WHITE BLOOD COUNT 9.9 K/uL (4.8-10.8)
[2016-07-28 08:33] LABS: ALB/GLOB RATIO 1.2 (1.0-2.1); ALKALINE PHOSPHATASE 82 U/L (38-126); ALT/SGPT 79 U/L (21-72); AST/SGOT 56 U/L (17-59); BILIRUBIN,TOTAL 1.4 mg/dl (0.2-1.3); BLOOD UREA NITROGEN 20 mg/dl (9-20); CALCIUM 8.8 mg/dL (8.4-10.2); CARBON DIOXIDE 26 mmol/L (22-30); CHLORIDE 99 mmol/L (98-107); GFR AFRICAN-AMERICAN > 60; GLUCOSE,RANDOM 195 mg/dL (75-110); POTASSIUM 3.9 MMOL/L (3.6-5.0); SODIUM 135 mmol/l (132-148)
[2016-07-28] MEDS: Enoxaparin 40 mg Syringe SC SCH (09:02)
--- NOTE | 2016-07-28 11:05 | CP.PCM.PN ---
Subjective - Date & Time of Evaluation Date of Evaluation: 07/28/16 Time of Evaluation: 09:40 - Subjective Subjective: 86 y/o M admitted for new onset ataxia seen at bedside in not acute distress. Patient ahd fever 102 yesterday that resolved. Denies cough, SOB, runny nose, diarrhea or dysuria. Patient underwent MRI of the brain yesterday. Results reviewed. Pending Neuro eval today. Patient seems confused at times. According to the he is having urinary incontinence since admission and memory loss. Patient also admits memory loss but can't recall for how long. Objective - Vital Signs/Intake and Output Vital Signs (last 24 hours): Temp Pulse Resp BP Pulse Ox 98.3 F 76 20 129/68 95 07/28/16 09:00 07/28/16 09:00 07/28/16 09:00 07/28/16 09:00 07/28/16 09:00 - Medications Medications: Current Medications Acetaminophen (Tylenol 325mg Tab) 650 mg PO Q6 PRN PRN Reason: Fever >100.4 F Last Admin: 07/27/16 20:13 Dose: 650 mg Atorvastatin Calcium (Lipitor) 20 mg PO DAILY [facility] Last Admin: 07/28/16 09:02 Dose: 20 mg Clopidogrel Bisulfate (Plavix) 75 mg PO DAILY [facility] Last Admin: 07/28/16 09:03 Dose: 75 mg Dextrose (Dextrose 50% Inj) 0 ml IV STAT PRN; Protocol PRN Reason: Hyglycemia Protocol Dextrose (Glutose 15) 0 gm PO ONCE PRN; Protocol PRN Reason: Hypoglycemia Protocol Enoxaparin Sodium (Lovenox) 40 mg SC DAILY [facility] PRN Reason: Protocol Last Admin: 07/28/16 09:02 Dose: 40 mg Finasteride (Proscar) 5 mg PO DAILY [facility] Last Admin: 07/28/16 09:03 Dose: 5 mg Folic Acid (Folic Acid) 1 mg PO DAILY [facility] Last Admin: 07/28/16 09:02 Dose: 1 mg Glucagon (Glucagen Diagnostic Kit) 0 mg IM STAT PRN; Protocol PRN Reason: Hypoglycemia Protocol Insulin Human Regular (Humulin R) 0 units SC ACHS [facility] PRN Reason: Protocol Last Admin: 07/28/16 06:33 Dose: 1 unit Metformin HCl (Glucophage) 1,000 mg PO BID [facility] Last Admin: 07/26/16 09:41 Dose: 1,000 mg - Labs Labs: 07/28/16 06:30 07/28/16 06:30 - Constitutional Appears: Non-toxic, No Acute Distress - Eye Exam Eye Exam: PERRL - ENT Exam ENT Exam: Mucous Membranes Moist - Respiratory Exam Respiratory Exam: Clear to Ausculation Bilateral, NORMAL BREATHING PATTERN. absent: Rales, Wheezes - Cardiovascular Exam Cardiovascular Exam: REGULAR RHYTHM, +S1, +S2. absent: Gallop - GI/Abdominal Exam GI & Abdominal Exam: Soft, Normal Bowel Sounds. absent: Tenderness - Extremities Exam Extremities Exam: Normal Capillary Refill. absent: Calf Tenderness - Neurological Exam Neurological Exam: Alert, Awake, Oriented x3 (confused at times). absent: Motor Sensory Deficit, Normal Gait (ataxia) - Psychiatric Exam Psychiatric exam: Normal Affect, Normal Mood - Skin Skin Exam: Normal Color, Warm Assessment and Plan - Assessment and Plan (Free Text) Assessment: 86 y/o male with PMHx of NIDDM and Hyperlipidemia admitted for dizziness and new onset unsteady gait Ataxia -lacunar infarct vs posterior column dysfunction -Head elevated and bedrest -Fall precautions -Neuro check every 2 hours -Brain MRI: Enlargement of ventricules due to volume loss. Tiny lacunar infarct r/basal ganglia(Please see full report) -F/U EEG results -Echocardiogram: Trace aortic insufficiency. Rest WNL -Neurology consult appreciated. Dr. Miranda. F/U recommendations -Cardiology consult appreciated. Dr. Todd. 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
[2016-07-28 14:57] LABS: RBC URINE 5 /hpf (0-3); URINE BACTERIA RARE (<OCC); URINE BILIRUBIN NEGATIVE (NEGATIVE); URINE BLOOD NEGATIVE (NEGATIVE); URINE COLOR AMBER (YELLOW); URINE GLUCOSE (UA) >=500 mg/dL (Normal); URINE KETONE TRACE mg/dL (NEGATIVE); URINE LEUKOCYTE ESTERASE NEG Leu/uL (Negative); URINE PROTEIN 100 mg/dL (NEGATIVE); WBC URINE 10 /hpf (0-5)
--- NOTE | 2016-07-28 16:11 | EEG ---
DATE: 07/28/2016 DIAGNOSIS: Rule out seizures. MEDICATIONS: Reviewed via nurse's reconciliation sheet. INTERPRETATION: This is a 16-channel international recording. The background activity was composed of cycles 5 to 7 cycles per second. There was limited amount of beta activity 16 to 20 cycles per sec ond seen in this tracing. There was increased amount of theta activity 5 to 7 cycles per second seen in this tracing. Drowsiness was characterized by mixed beta and theta activities. Sleep was charac terized by vertex transient waves, sleep spindles and bilateral slowing. Photic stimulation showed n o change in the tracing. No paroxysmal activity noted in this recording. CONCLUSION: Abnormal electroencephalogram due to presence of diffuse slowing consistent with bilater al cerebral dysfunction. No evidence of any epileptiform activity. Please clinically correlate. Chirag Marinelli MD cc: [id number] TT: 07/28/2016 16:10:42 Confirmation # [id number] Dictation # [id number]
[2016-07-29] MEDS: Insulin Regular 100 units/ml SC SCH ×4 (06:36→22:44)
[2016-07-29] MEDS ORDERED: Azithromycin 500 MG in Sodium Chloride 0.9% 250 ML IVPB STA (08:38)
[2016-07-29] MEDS: Enoxaparin 40 mg Syringe SC SCH (08:54)
--- NOTE | 2016-07-29 13:46 | CP.PCM.PN ---
Subjective - Date & Time of Evaluation Date of Evaluation: 07/29/16 Time of Evaluation: 08:30 - Subjective Subjective: Patient was seen and examined at bedside. Patient had a temp of 102.8 F last night, and early this morning a low grade temp of 100.7 F. Patient denies CP, SOB, urinary symptoms, diarrheas, abdominal pain, dizziness. Patient patient was crying with family at bedside, because " he wants to go home" and " he does not like hospital". Objective - Vital Signs/Intake and Output Vital Signs (last 24 hours): Temp Pulse Resp BP Pulse Ox 98.5 F 81 20 148/75 96 07/29/16 13:05 07/29/16 13:05 07/29/16 13:05 07/29/16 13:05 07/29/16 13:05 - Medications Medications: Current Medications Acetaminophen (Tylenol 325mg Tab) 650 mg PO Q6 PRN PRN Reason: Fever >100.4 F Last Admin: 07/28/16 15:37 Dose: 650 mg Atorvastatin Calcium (Lipitor) 20 mg PO DAILY [facility] Last Admin: 07/29/16 08:54 Dose: 20 mg Clopidogrel Bisulfate (Plavix) 75 mg PO DAILY [facility] Last Admin: 07/29/16 08:53 Dose: 75 mg Dextrose (Dextrose 50% Inj) 0 ml IV STAT PRN; Protocol PRN Reason: Hyglycemia Protocol Dextrose (Glutose 15) 0 gm PO ONCE PRN; Protocol PRN Reason: Hypoglycemia Protocol Docusate Sodium (Colace) 200 mg PO DAILY [facility] Last Admin: 07/29/16 08:53 Dose: 200 mg Enoxaparin Sodium (Lovenox) 40 mg SC DAILY [facility] PRN Reason: Protocol Last Admin: 07/29/16 08:54 Dose: 40 mg Finasteride (Proscar) 5 mg PO DAILY [facility] Last Admin: 07/29/16 08:53 Dose: 5 mg Folic Acid (Folic Acid) 1 mg PO DAILY [facility] Last Admin: 07/29/16 08:53 Dose: 1 mg Glucagon (Glucagen Diagnostic Kit) 0 mg IM STAT PRN; Protocol PRN Reason: Hypoglycemia Protocol Ceftriaxone Sodium 1 gm/ (Sodium Chloride) 100 mls @ 100 mls/hr IVPB DAILY [facility] Last Admin: 07/29/16 11:01 Dose: 100 mls/hr Insulin Human Regular (Humulin R) 0 units SC ACHS [facility] PRN Reason: Protocol Last Admin: 07/29/16 12:55 Dose: 5 units Metformin HCl (Glucophage) 1,000 mg PO BID [facility] - Labs Labs: 07/28/16 06:30 07/28/16 06:30 - Constitutional Appears: Non-toxic, No Acute Distress - Eye Exam Eye Exam: Normal appearance - ENT Exam ENT Exam: Mucous Membranes Moist - Respiratory Exam Respiratory Exam: Clear to Ausculation Bilateral, NORMAL BREATHING PATTERN - Cardiovascular Exam Cardiovascular Exam: REGULAR RHYTHM, +S1, +S2 - GI/Abdominal Exam GI & Abdominal Exam: Soft, Normal Bowel Sounds. absent: Guarding, Rigid, Tenderness - Extremities Exam Extremities Exam: Normal Inspection. absent: Calf Tenderness, Pedal Edema - Back Exam Back Exam: NORMAL INSPECTION. absent: CVA tenderness (L), CVA tenderness (R) - Neurological Exam Neurological Exam: Alert, Awake, Oriented x3 - Skin Skin Exam: Dry, Intact, Normal Color Assessment and Plan - Assessment and Plan (Free Text) Assessment: 86 y/o male with PMHx of NIDDM and Hyperlipidemia admitted with ataxia, progressing memory loss, and with recently spiking fever Plan: Fever CAP VS HCAP. Since admission patient had Low grade fever, but also patient has risk for UTI -No leukocytosis today, but WBC were 11 on admission -CXR showed possible evidence of left sided infiltrate, but official report is pending -Ceftriaxone 1 gm IV once. Consider continue base of clinical status, fever, and CXR report -Azythromycin 500 mg IV once. Consider continue clinical status, fever, and CXR report -F/U Urine culture Ataxia R/O TIA -Keep patient bedrest, and head in elevation -Fall precautions -Neuro check every 2 hours -CBC: H/H: 12.1/34.9 -CMP: WNL -Carotid/vertebral ultrasound showed Right ICA< 50 % , Left ICA 50-69 % -Head CT w/o contrast in ED showed: no intracraneal hemorrhage, and no acute changes -Brain MRI showed no acute intracraneal hemorrhage or infarct. Mild chronic ischemic changes. 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 -EEG consistent with bilateral cerebral dysfunction -Echocardiogram showed EF: 60-65 %, normal LV function, trace of aortic insuficiency -Neurology consult appreciated. Dr. Ruben. F/U recommendations -Cardiology consult appreciated. Dr. Todd. Stable for cardiac standpoint. 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
--- NOTE | 2016-07-29 16:41 | RAD ---
HISTORY: Fever 102, Diminished breath sounds COMPARISON: Guy comparison chest 07/25/2016. No prior. FINDINGS: LUNGS: Poor inspiration with low lung volumes, crowded bronchovascular markings and mild bibasilar atelectasis. Developing infiltrates could be excluded followup radiographs. Questionable mild pleural thickening and/or small effusion left CP angle region. PLEURA: No significant pleural effusion identified, no pneumothorax apparent. CARDIOVASCULAR: Heart size is upper limits of normal/borderline enlarged. Guy OSSEOUS STRUCTURES: No significant abnormalities. VISUALIZED UPPER ABDOMEN: Normal. OTHER FINDINGS: None. IMPRESSION: Poor inspiration with low lung volumes, crowded bronchovascular markings and mild bibasilar atelectasis. Developing infiltrates could be excluded followup radiographs. Questionable mild pleural thickening and/or small effusion left CP angle region.
[2016-07-30] MEDS: Insulin Regular 100 units/ml SC SCH ×3 (06:52→22:23)
[2016-07-30 06:53] LABS: BASO % 0.4 % (0.0-2.0); EOS # 0.1 K/uL (0.0-0.7); EOS % 1.5 % (0.0-4.0); HEMATOCRIT 35.7 % (35.0-51.0); LYMPH % 23.5 % (20.0-40.0); MEAN CELL VOLUME 96.8 fl (80.0-94.0); MEAN CORPUSCULAR HEMOGLOBIN 32.9 pg (27.0-31.0); MEAN PLATELET VOLUME 8.6 fl (7.2-11.7); NEUT # 5.2 K/uL (1.8-7.0); NEUT % 62.6 % (50.0-75.0); NRBC % 0.1 % (0.0-0.0); RED CELL DISTRIBUTION WIDTH 12.6 % (11.5-14.5); WHITE BLOOD COUNT 8.4 K/uL (4.8-10.8)
--- NOTE | 2016-07-30 09:25 | CP.PCM.PN ---
Subjective - Date & Time of Evaluation Date of Evaluation: 07/30/16 Time of Evaluation: 07:15 - Subjective Subjective: Patient was seen and examined at bedside. Patient had a temp of 101.2 F at midnight. Patient denies cough, chest pain, SOB, nausea, vomiting, urinary symptoms, dizziness, or other complains. Patient is tolerating PO with good appetite. Patient is still with unsteady gait. Objective - Vital Signs/Intake and Output Vital Signs (last 24 hours): Temp Pulse Resp BP Pulse Ox 98.1 F 73 20 134/67 95 07/30/16 09:00 07/30/16 09:00 07/30/16 09:00 07/30/16 09:00 07/30/16 09:00 - Medications Medications: Current Medications Acetaminophen (Tylenol 325mg Tab) 650 mg PO Q6 PRN PRN Reason: Fever >100.4 F Last Admin: 07/29/16 23:58 Dose: 650 mg Atorvastatin Calcium (Lipitor) 20 mg PO DAILY [facility] Last Admin: 07/29/16 08:54 Dose: 20 mg Clopidogrel Bisulfate (Plavix) 75 mg PO DAILY [facility] Last Admin: 07/29/16 08:53 Dose: 75 mg Dextrose (Dextrose 50% Inj) 0 ml IV STAT PRN; Protocol PRN Reason: Hyglycemia Protocol Dextrose (Glutose 15) 0 gm PO ONCE PRN; Protocol PRN Reason: Hypoglycemia Protocol Docusate Sodium (Colace) 200 mg PO DAILY [facility] Last Admin: 07/29/16 08:53 Dose: 200 mg Enoxaparin Sodium (Lovenox) 40 mg SC DAILY [facility] PRN Reason: Protocol Last Admin: 07/29/16 08:54 Dose: 40 mg Finasteride (Proscar) 5 mg PO DAILY [facility] Last Admin: 07/29/16 08:53 Dose: 5 mg Folic Acid (Folic Acid) 1 mg PO DAILY [facility] Last Admin: 07/29/16 08:53 Dose: 1 mg Glucagon (Glucagen Diagnostic Kit) 0 mg IM STAT PRN; Protocol PRN Reason: Hypoglycemia Protocol Ceftriaxone Sodium 1 gm/ (Sodium Chloride) 100 mls @ 100 mls/hr IVPB DAILY [facility] Last Admin: 07/29/16 11:01 Dose: 100 mls/hr Insulin Human Regular (Humulin R) 0 units SC ACHS [facility] PRN Reason: Protocol Last Admin: 07/30/16 06:52 Dose: 2 units Metformin HCl (Glucophage) 1,000 mg PO BID [facility] Last Admin: 07/29/16 16:08 Dose: 1,000 mg - Labs Labs: 07/30/16 05:30 07/28/16 06:30 - Constitutional Appears: Non-toxic, No Acute Distress - Respiratory Exam Respiratory Exam: Rales (scant, fine, and diffuse crackles in lower lobes bilateral to auscultation), NORMAL BREATHING PATTERN. absent: Rhonchi, Wheezes , Respiratory Distress - Cardiovascular Exam Cardiovascular Exam: REGULAR RHYTHM, +S1, +S2 - GI/Abdominal Exam GI & Abdominal Exam: Soft, Normal Bowel Sounds. absent: Guarding, Rigid, Tenderness - Extremities Exam Extremities Exam: Normal Inspection. absent: Calf Tenderness, Pedal Edema - Back Exam Back Exam: NORMAL INSPECTION. absent: CVA tenderness (L), CVA tenderness (R) - Neurological Exam Neurological Exam: Alert, Awake, Oriented x3 - Skin Skin Exam: Dry, Intact, Normal Color Assessment and Plan - Assessment and Plan (Free Text) Assessment: 86 y/o male with PMHx of NIDDM and Hyperlipidemia admitted with ataxia, progressing memory loss, spiking fever, and unsteady gait. . Plan: Fever Unclear etiology CAP VS HCAP. Since admission patient had Low grade fever, but also patient has risk for UTI -No leukocytosis -CXR was read as developing infiltrates could be excluded f/u x rays -c/w Ceftriaxone 1 gm IV daily -c/w Azythromycin 250 mg PO daily x 4 days -F/U Urine culture -Blood culture showed no growth in 24 hours Ataxia R/O TIA -Keep patient bedrest, and head in elevation -Fall precautions -Neuro check every 2 hours -CBC: H/H: 12.1/34.9 -Jeffery was re-called, Dr. Miranda on board, will see patient. F/U recommendations -Carotid/vertebral ultrasound showed Right ICA< 50 % , Left ICA 50-69 % -Head CT w/o contrast in ED showed: no intracraneal hemorrhage, and no acute changes -Brain MRI showed no acute intracraneal hemorrhage or infarct. Mild chronic ischemic changes. 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 -EEG consistent with bilateral cerebral dysfunction -Echocardiogram showed EF: 60-65 %, normal LV function, trace of aortic insuficiency -Cardiology consult appreciated. Dr. Todd. Stable for cardiac standpoint. 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
[2016-07-30] MEDS: Enoxaparin 40 mg Syringe SC SCH (10:46)
--- NOTE | 2016-07-30 14:49 | PN ---
DATE: 07/30/2016 NEUROLOGICAL PROBLEM: Mild right hemiparesis, workup small vessel disease as per the MRI, recent onset of fever for the last few days. PHYSICAL EXAMINATION: VITAL SIGNS: Blood pressure 129/72, mean arterial pressure of 91, respiratory rate 18, temperature 98.3 since this morning, pulse rate 76, regular. GENERAL: The patient is examined in the presence of his . He is awake, alert, oriented to person and place. He could not able to tell the president. Small calculation, he could able to do it. He could able to cross the midline. Follows 3-step complex commands. NECK: No meningismus. No Brudzinski sign, no Kernig sign. NEUROLOGIC: Speech is clear. Extraocular movement decreased in all directions , which is unchanged to his previous exam. Speech is normal. MOTOR: No drift. Power is symmetric on either side. Deep tendon reflexes are trace. Plantars are downgoing. COORDINATION: [id number] test is intact. GAIT: He could able to get up on his own and marching on one place. CONCLUSION: The patient has not shown any evidence of meningeal irritation versus brain dysfunction consistent with infectious source. At this point, I doubt the patient's raise in temperature is the cause for the central source. The patient already been started on dual antibiotics and temperature is stable at present. Continue hydration and repeat a chest x-ray to rule out any underlying pneumonia. Continue antiplatelets as recommended. No further workup is needed from neurological point of view. The patient's condition has been discussed with physician assistant store manager as well as attending. The patient will be followed closely while he is in the hospital. Proper hydration and proper antibiotic is recommended. If needed, ID consult may be warranted at present time. Alexx Miranda MD cc: [id number] TT: 07/30/2016 14:48:47 Confirmation # [id number] Dictation # [id number] en MTDD
[2016-07-31] MEDS: Insulin Regular 100 units/ml SC SCH ×4 (06:44→23:36)
[2016-07-31 06:50] LABS: BASO % 0.6 % (0.0-2.0); EOS # 0.2 K/uL (0.0-0.7); EOS % 2.3 % (0.0-4.0); HEMATOCRIT 34.9 % (35.0-51.0); LYMPH % 29.1 % (20.0-40.0); MEAN CELL VOLUME 95.7 fl (80.0-94.0); MEAN CORPUSCULAR HEMOGLOBIN 33.3 pg (27.0-31.0); MEAN CORPUSCULAR HGB CONC 34.8 g/dL (33.0-37.0); MEAN PLATELET VOLUME 8.3 fl (7.2-11.7); MONO # 0.7 K/uL (0.0-0.8); MONO % 10.6 % (0.0-10.0); NEUT % 57.4 % (50.0-75.0); NRBC % 0.1 % (0.0-0.0); RED CELL DISTRIBUTION WIDTH 12.7 % (11.5-14.5)
[2016-07-31 06:56] LABS: ALB/GLOB RATIO 1.1 (1.0-2.1); ALKALINE PHOSPHATASE 130 U/L (38-126); ALT/SGPT 96 U/L (21-72); AST/SGOT 60 U/L (17-59); BILIRUBIN,TOTAL 0.5 mg/dl (0.2-1.3); BLOOD UREA NITROGEN 24 mg/dl (9-20); CALCIUM 9.1 mg/dL (8.4-10.2); CARBON DIOXIDE 25 mmol/L (22-30); CHLORIDE 103 mmol/L (98-107); GFR AFRICAN-AMERICAN > 60; GLUCOSE,RANDOM 194 mg/dL (75-110); POTASSIUM 4.1 MMOL/L (3.6-5.0); SODIUM 137 mmol/l (132-148); TOTAL PROTEIN 6.9 G/DL (6.3-8.2)
[2016-07-31] MEDS: Enoxaparin 40 mg Syringe SC SCH (09:04)
--- NOTE | 2016-07-31 13:59 | CP.PCM.PN ---
<Mariam Nelsonth - Last Filed: 07/31/16 15:15> Subjective - Date & Time of Evaluation Date of Evaluation: 07/31/16 Time of Evaluation: 07:15 - Subjective Subjective: Patient was seen and examined at bedside this morning. Patient has been afebrile for 24 hours. Patient is still unsteady on his feet. Patient denies chest pain, SOB, dizziness, nausea, vomiting, abdominal pain. Tolerating PO. Objective - Vital Signs/Intake and Output Vital Signs (last 24 hours): Temp Pulse Resp BP Pulse Ox 98.1 F 69 20 125/64 97 07/31/16 12:48 07/31/16 12:48 07/31/16 12:48 07/31/16 12:48 07/31/16 12:48 - Medications Medications: Current Medications Acetaminophen (Tylenol 325mg Tab) 650 mg PO Q6 PRN PRN Reason: Fever >100.4 F Last Admin: 07/29/16 23:58 Dose: 650 mg Atorvastatin Calcium (Lipitor) 20 mg PO DAILY [facility] Last Admin: 07/31/16 09:04 Dose: 20 mg Azithromycin (Zithromax) 250 mg PO DAILY [facility] Stop: 08/02/16 09:01 Last Admin: 07/31/16 09:09 Dose: 250 mg Clopidogrel Bisulfate (Plavix) 75 mg PO DAILY [facility] Last Admin: 07/31/16 09:04 Dose: 75 mg Dextrose (Dextrose 50% Inj) 0 ml IV STAT PRN; Protocol PRN Reason: Hyglycemia Protocol Dextrose (Glutose 15) 0 gm PO ONCE PRN; Protocol PRN Reason: Hypoglycemia Protocol Docusate Sodium (Colace) 200 mg PO DAILY [facility] Last Admin: 07/31/16 09:02 Dose: 200 mg Enalapril Maleate (Vasotec) 2.5 mg PO DAILY [facility] Last Admin: 07/31/16 09:09 Dose: 2.5 mg Enoxaparin Sodium (Lovenox) 40 mg SC DAILY [facility] PRN Reason: Protocol Last Admin: 07/31/16 09:04 Dose: 40 mg Finasteride (Proscar) 5 mg PO DAILY [facility] Last Admin: 07/31/16 09:05 Dose: 5 mg Folic Acid (Folic Acid) 1 mg PO DAILY [facility] Last Admin: 07/31/16 09:03 Dose: 1 mg Glucagon (Glucagen Diagnostic Kit) 0 mg IM STAT PRN; Protocol PRN Reason: Hypoglycemia Protocol Ceftriaxone Sodium 1 gm/ (Sodium Chloride) 100 mls @ 100 mls/hr IVPB DAILY [facility] Last Admin: 07/31/16 09:06 Dose: 100 mls/hr Insulin Human Regular (Humulin R) 0 units SC ACHS [facility] PRN Reason: Protocol Last Admin: 07/31/16 13:11 Dose: 4 units Metformin HCl (Glucophage) 1,000 mg PO BID [facility] Last Admin: 07/31/16 09:03 Dose: 1,000 mg - Labs Labs: 07/31/16 05:50 07/31/16 05:50 - Additional Findings Additional findings: Constitutional Appears: Non-toxic, No Acute Distress - Respiratory Exam Respiratory Exam: Rales (scant, fine, and diffuse crackles in lower lobes bilateral to auscultation), NORMAL BREATHING PATTERN. absent: Rhonchi, Wheezes , Respiratory Distress - Cardiovascular Exam Cardiovascular Exam: REGULAR RHYTHM, +S1, +S2 - GI/Abdominal Exam GI & Abdominal Exam: Soft, Normal Bowel Sounds. absent: Guarding, Rigid, Tenderness - Extremities Exam Extremities Exam: Normal Inspection. absent: Calf Tenderness, Pedal Edema - Back Exam Back Exam: NORMAL INSPECTION. absent: CVA tenderness (L), CVA tenderness (R) - Neurological Exam Neurological Exam: Alert, Awake, Oriented x3 - Skin Skin Exam: Dry, Intact, Normal Color Assessment and Plan - Assessment and Plan (Free Text) Assessment: 86 y/o male with PMHx of NIDDM and Hyperlipidemia admitted with ataxia, progressing memory loss, afebrile for 24 hours now, but still with unsteady gait. Plan: Fever Afebrile for 24 hours Unclear etiology CAP VS HCAP. Since admission patient had Low grade fever, but also patient has risk for UTI -Scant fine diffuse crackles in lower lobes bilateral -No leukocytosis -CXR was read as developing infiltrates could be excluded f/u x rays -F/U repeat CXR -c/w Ceftriaxone 1 gm IV daily day #3 -c/w Azythromycin 250 mg PO daily x 4 days day #3 -Urine culture showed possible contamination -Blood culture showed no growth in 24 hours -Consider ID consult if spikes fever Ataxia? -No further workup is needed from neulogical point of view -Fall precautions -Jeffery was re-called, Dr. Miranda on board. No eviednce of meningeal irritation vs brain dysfunction consistent with infectious source. Please see report for details. -Carotid/vertebral ultrasound showed Right ICA< 50 % , Left ICA 50-69 % -Head CT w/o contrast in ED showed: no intracraneal hemorrhage, and no acute changes -Brain MRI showed no acute intracraneal hemorrhage or infarct. Mild chronic ischemic changes. 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 -EEG consistent with bilateral cerebral dysfunction -Echocardiogram showed EF: 60-65 %, normal LV function, trace of aortic insufficiency -Cardiology consult appreciated. Dr. Todd. Stable for cardiac standpoint. 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 DM type II Non insulin dependent -Accu-check ACHSfor -c/w Home Metformin 1000 mg BID -Changed MDSS insulin by protocol -Glucagon by protocol for Hypoglycemia -Lipid profile WNL Will monitor BPH c/w home finasteride DVT prophylaxis c/w Lovenox 40 mg SC daily <Tony Pepe - Last Filed: 08/01/16 06:50> Objective - Vital Signs/Intake and Output Vital Signs (last 24 hours): Temp Pulse Resp BP Pulse Ox 98.5 F 72 19 136/70 95 08/01/16 04:39 08/01/16 04:39 08/01/16 04:39 08/01/16 04:39 08/01/16 04:39 Intake and Output: 07/31/16 08/01/16 18:59 06:59 Intake Total 1300 Balance 1300 - Medications Medications: Current Medications Acetaminophen (Tylenol 325mg Tab) 650 mg PO Q6 PRN PRN Reason: Fever >100.4 F Last Admin: 07/29/16 23:58 Dose: 650 mg Atorvastatin Calcium (Lipitor) 20 mg PO DAILY [facility] Last Admin: 07/31/16 09:04 Dose: 20 mg Azithromycin (Zithromax) 250 mg PO DAILY [facility] Stop: 08/02/16 09:01 Last Admin: 07/31/16 09:09 Dose: 250 mg Clopidogrel Bisulfate (Plavix) 75 mg PO DAILY [facility] Last Admin: 07/31/16 09:04 Dose: 75 mg Dextrose (Dextrose 50% Inj) 0 ml IV STAT PRN; Protocol PRN Reason: Hyglycemia Protocol Dextrose (Glutose 15) 0 gm PO ONCE PRN; Protocol PRN Reason: Hypoglycemia Protocol Docusate Sodium (Colace) 200 mg PO DAILY [facility] Last Admin: 07/31/16 09:02 Dose: 200 mg Enalapril Maleate (Vasotec) 2.5 mg PO DAILY [facility] Last Admin: 07/31/16 09:09 Dose: 2.5 mg Enoxaparin Sodium (Lovenox) 40 mg SC DAILY [facility] PRN Reason: Protocol Last Admin: 07/31/16 09:04 Dose: 40 mg Finasteride (Proscar) 5 mg PO DAILY [facility] Last Admin: 07/31/16 09:05 Dose: 5 mg Folic Acid (Folic Acid) 1 mg PO DAILY [facility] Last Admin: 07/31/16 09:03 Dose: 1 mg Glucagon (Glucagen Diagnostic Kit) 0 mg IM STAT PRN; Protocol PRN Reason: Hypoglycemia Protocol Ceftriaxone Sodium 1 gm/ (Sodium Chloride) 100 mls @ 100 mls/hr IVPB DAILY [facility] Last Admin: 07/31/16 09:06 Dose: 100 mls/hr Insulin Human Regular (Humulin R) 0 units SC ACHS [facility] PRN Reason: Protocol Last Admin: 07/31/16 23:36 Dose: Not Given Metformin HCl (Glucophage) 1,000 mg PO BID [facility] Last Admin: 07/31/16 17:06 Dose: 1,000 mg - Labs Labs: 07/31/16 05:50 07/31/16 05:50 Attending/Attestation - Attestation I have personally seen and examined this patient.: Yes I have fully participated in the care of the patient.: Yes I have reviewed all pertinent clinical information, including history, physical exam and plan: Yes
--- NOTE | 2016-07-31 15:37 | RAD ---
HISTORY: Fever. Portable upright study 09:10. COMPARISON: 07/28/2016. FINDINGS: LUNGS: No active pulmonary disease. PLEURA: No significant pleural effusion identified, no pneumothorax apparent. CARDIOVASCULAR: No radiographic findings to suggest acute or significant cardiovascular disease. OSSEOUS STRUCTURES: No significant abnormalities. VISUALIZED UPPER ABDOMEN: Normal. OTHER FINDINGS: None. IMPRESSION: No active disease. No significant interval change compared to the prior examination(s).
--- NOTE | 2016-07-31 18:30 | PN ---
DATE: 07/31/2016 NEUROLOGICAL PROBLEM: Transient left cerebral ischemic process, which was resolved at present. Fever of unknown origin, OBJECTIVE: VITAL SIGNS: Blood pressure 120/54, mean arterial pressure of 76, respiratory rate 16, temperature afebrile. NEUROLOGIC: The patient is examined in the presence of his cousin as well as his . He is awake, alert, oriented to person, place, and time. He is bored of staying in the hospital. He moves all 4 extremities against gravity. The patient is able to go to the bathroom. with little assistance. His temperature is stable for more than a 24-hour period. WORKUP: Serologic workup is also negative so far. If the patient is medically stable, the patient can be a good candidate for the rehabilitation center. From there he can be discharged to go home. From a neurological point of view, no further intervention is needed. Alexx Miranda MD cc: [id number] TT: 07/31/2016 18:30:30 Confirmation # [id number] Dictation # [id number] [email or web address] [email or web address]
[2016-08-01] MEDS: Insulin Regular 100 units/ml SC SCH ×3 (06:55→17:11)
[2016-08-01 08:01] VITALS: RESP 20
[2016-08-01] MEDS: Enoxaparin 40 mg Syringe SC SCH (09:45)
[2016-08-01 11:44] VITALS: O2SAT 96
--- NOTE | 2016-08-01 12:49 | CP.PCM.DIS ---
<Uma Nelson - Last Filed: 08/01/16 16:28> Provider - Provider Date of Admission: 07/26/16 16:47 Attending physician: Gage Turcios MD Time Spent in preparation of Discharge (in minutes): 30 Diagnosis - Discharge Diagnosis (1) Unsteady gait Status: Acute Comment: Unclear etiology. Neurology was consulted and no further intervention from neurology point of view. Physical therapy recommended PT home services. (2) Diabetes mellitus, type II Status: Chronic Comment: c/w outpatient monitoring and management (3) Community acquired pneumonia Status: Acute Comment: Improving. Afebrile. C/w PO Keflex and Azithromycin. F/U with PMD as outpatient. Hospital Course - Lab Results Lab Results: Micro Results 07/27/16 21:00 Blood Blood Culture - Preliminary NO GROWTH AFTER 4 DAYS 07/28/16 03:08 Blood-Venous Blood Culture - Preliminary NO GROWTH AFTER 3 DAYS 07/27/16 14:23 Urine,Clean Catch Urine Culture - Final 10-50,000 CFU/ML. MULTIPLE SPECIES. PROBABLE CONTAMINATION. Most Recent Lab Values WBC 7.0 K/uL (4.8-10.8) 07/31/16 05:50 RBC 3.65 Mil/uL (4.40-5.90) L 07/31/16 05:50 Hgb 12.2 g/dL (12.0-18.0) 07/31/16 05:50 Hct 34.9 % (35.0-51.0) L 07/31/16 05:50 MCV 95.7 fl (80.0-94.0) H 07/31/16 05:50 MCH 33.3 pg (27.0-31.0) H 07/31/16 05:50 MCHC 34.8 g/dL (33.0-37.0) 07/31/16 05:50 RDW 12.7 % (11.5-14.5) 07/31/16 05:50 Plt Count 208 K/uL (130-400) 07/31/16 05:50 MPV 8.3 fl (7.2-11.7) 07/31/16 05:50 Neut % (Auto) 57.4 % (50.0-75.0) 07/31/16 05:50 Lymph % (Auto) 29.1 % (20.0-40.0) 07/31/16 05:50 [place] % (Auto) 10.6 % (0.0-10.0) H 07/31/16 05:50 Eos % (Auto) 2.3 % (0.0-4.0) 07/31/16 05:50 Baso % (Auto) 0.6 % (0.0-2.0) 07/31/16 05:50 Neut # 4.0 K/uL (1.8-7.0) 07/31/16 05:50 Lymph # 2.0 K/uL (1.0-4.3) 07/31/16 05:50 [place] # 0.7 K/uL (0.0-0.8) 07/31/16 05:50 Eos # 0.2 K/uL (0.0-0.7) 07/31/16 05:50 Baso # 0.0 K/uL (0.0-0.2) 07/31/16 05:50 Sodium 137 mmol/l (132-148) 07/31/16 05:50 Potassium 4.1 MMOL/L (3.6-5.0) 07/31/16 05:50 Chloride 103 mmol/L (98-107) 07/31/16 05:50 Carbon Dioxide 25 mmol/L (22-30) 07/31/16 05:50 Anion Gap 13 (10-20) 07/31/16 05:50 BUN 24 mg/dl (9-20) H 07/31/16 05:50 Creatinine 1.0 mg/dL (0.8-1.5) 07/31/16 05:50 Est GFR ( Amer) > 60 07/31/16 05:50 Est GFR (Non-Af Amer) > 60 07/31/16 05:50 POC Glucose (mg/dL) 245 mg/dL (65-110) H 08/01/16 11:17 Random Glucose 194 mg/dL (75-110) H 07/31/16 05:50 Hemoglobin A1c 7.2 % (4.2-6.5) H 07/26/16 20:00 Lactic Acid 1.6 MMOL/L (0.7-2.1) 07/28/16 17:33 Calcium 9.1 mg/dL (8.4-10.2) 07/31/16 05:50 Total Bilirubin 0.5 mg/dl (0.2-1.3) 07/31/16 05:50 AST 60 U/L (17-59) H 07/31/16 05:50 ALT 96 U/L (21-72) H D 07/31/16 05:50 Alkaline Phosphatase 130 U/L (38-126) H D 07/31/16 05:50 Troponin I < 0.0120 ng/mL (0.00-0.120) 07/25/16 18:00 Total Protein 6.9 G/DL (6.3-8.2) 07/31/16 05:50 Albumin 3.6 g/dL (3.5-5.0) 07/31/16 05:50 Globulin 3.3 gm/dL (2.2-3.9) 07/31/16 05:50 Albumin/Globulin Ratio 1.1 (1.0-2.1) 07/31/16 05:50 Triglycerides 71 mg/DL (0-149) 07/26/16 05:40 Cholesterol 123 mg/dL (0-199) 07/26/16 05:40 LDL Cholesterol Direct 55 mg/dL (0-129) 07/26/16 05:40 HDL Cholesterol 45 MG/DL (30-70) 07/26/16 05:40 Vitamin B12 341 pg/mL (239-931) 07/26/16 20:00 Folate 12.0 ng/mL 07/26/16 20:00 Homocysteine 12.3 umol/L ( <11.4) H 07/26/16 20:00 Procalcitonin 0.13 NG/ML (0.19-0.49) L 07/30/16 05:30 TSH 3rd Generation 2.44 mIU/ML (0.46-4.68) 07/26/16 20:00 Urine Color Amalia (YELLOW) 07/27/16 14:23 Urine Clarity Clear (Clear) 07/27/16 14:23 Urine pH 5.0 (5.0-8.0) 07/27/16 14:23 Ur Specific [place] 1.025 (1.003-1.030) 07/27/16 14:23 Urine Protein 100 mg/dL (NEGATIVE) 07/27/16 14:23 Urine Glucose (UA) >=500 mg/dL (Normal) 07/27/16 14:23 Urine Ketones Trace mg/dL (NEGATIVE) 07/27/16 14:23 Urine Blood Negative (NEGATIVE) 07/27/16 14:23 Urine Nitrate Negative (NEGATIVE) 07/27/16 14:23 Urine Bilirubin Negative (NEGATIVE) 07/27/16 14:23 Urine Urobilinogen 4.0 mg/dL (0.2-1.0) 07/27/16 14:23 Ur Leukocyte Esterase Neg Viviane/uL (Negative) 07/27/16 14:23 Urine RBC (Auto) 5 /hpf (0-3) H 07/27/16 14:23 Urine Microscopic WBC 10 /hpf (0-5) H 07/27/16 14:23 Ur Squamous Epith Cells 2 /hpf (0-5) 07/27/16 14:23 Urine Bacteria Rare (<OCC) 07/27/16 14:23 HIV-1 Ab Rapid Screen Non reactive (NON REAC) 07/26/16 20:00 Influenza Typ A,B (EIA) Negative for flu a/b (NEGATIVE) 07/25/16 18:00 - Hospital Course Hospital Course: 83 y/o male with pmhx of non-insulin dependent diabetes, BPH, and Hyperlipidemia who presented with sudden onset of unsteady gait, urinary incontinence, and dizziness admitted to R/O TIA. During admission patient was started on plavix, and statin. Neurology was consulted, follow up the patient while in house, and cleared patient from neurology standpoint. During admission patient was febrile, and CXR was read as developing infiltrates. Patient was managed with IV antibiotics, and fever resolved. Patient was evaluated by PT that recommended PT home services. patient is stable to be discharge home in PO plavix, statin, enalapril, and antibiotics. Patient will f/u as outpatient with PMD. - Date & Time of H&P Date of H&P: 07/25/16 Time of H&P: 22:25 Discharge Exam - Head Exam Head Exam: NORMOCEPHALIC - Additional Findings Additional findings: Constitutional Appears: Non-toxic, No Acute Distress - Respiratory Exam Respiratory Exam: Rales (scant, fine, and diffuse crackles in lower lobes bilateral to auscultation), NORMAL BREATHING PATTERN. absent: Rhonchi, Wheezes , Respiratory Distress - Cardiovascular Exam Cardiovascular Exam: REGULAR RHYTHM, +S1, +S2 - GI/Abdominal Exam GI & Abdominal Exam: Soft, Normal Bowel Sounds. absent: Guarding, Rigid, Tenderness - Extremities Exam Extremities Exam: Normal Inspection. absent: Calf Tenderness, Pedal Edema - Back Exam Back Exam: NORMAL INSPECTION. absent: CVA tenderness (L), CVA tenderness (R) - Neurological Exam Neurological Exam: Alert, Awake, Oriented x3 - Skin Skin Exam: Dry, Intact, Normal Color Discharge Plan - Discharge Medications Prescriptions: Atorvastatin [Lipitor] 20 mg PO DAILY #30 tab Azithromycin [Z-Tom] 250 mg PO DAILY #5 tab Cephalexin [Keflex] 500 mg PO BID #14 capsule Clopidogrel [Plavix] 75 mg PO DAILY #30 tab Enalapril Maleate [Vasotec] 2.5 mg PO DAILY #30 tab - Follow Up Plan Condition: STABLE Disposition: DISCHARGED TO HOME CARE Additional Instructions: F/U with PMD in 1 week ER precautions provided. <Tony Pepe - Last Filed: 08/03/16 06:54> Provider - Provider Date of Admission: 07/26/16 16:47 Attending physician: Ggae Turcios MD Hospital Course - Lab Results Lab Results: Micro Results 07/28/16 03:08 Blood-Venous Blood Culture - Final NO GROWTH AFTER 5 DAYS 07/28/16 03:08 Blood-Venous Gram Stain - Final TEST NOT PERFORMED 07/27/16 21:00 Blood Blood Culture - Final NO GROWTH AFTER 5 DAYS 07/27/16 21:00 Blood Gram Stain - Final TEST NOT PERFORMED 07/27/16 14:23 Urine,Clean Catch Urine Culture - Final 10-50,000 CFU/ML. MULTIPLE SPECIES. PROBABLE CONTAMINATION. Most Recent Lab Values WBC 7.0 K/uL (4.8-10.8) 07/31/16 05:50 RBC 3.65 Mil/uL (4.40-5.90) L 07/31/16 05:50 Hgb 12.2 g/dL (12.0-18.0) 07/31/16 05:50 Hct 34.9 % (35.0-51.0) L 07/31/16 05:50 MCV 95.7 fl (80.0-94.0) H 07/31/16 05:50 MCH 33.3 pg (27.0-31.0) H 07/31/16 05:50 MCHC 34.8 g/dL (33.0-37.0) 07/31/16 05:50 RDW 12.7 % (11.5-14.5) 07/31/16 05:50 Plt Count 208 K/uL (130-400) 07/31/16 05:50 MPV 8.3 fl (7.2-11.7) 07/31/16 05:50 Neut % (Auto) 57.4 % (50.0-75.0) 07/31/16 05:50 Lymph % (Auto) 29.1 % (20.0-40.0) 07/31/16 05:50 [place] % (Auto) 10.6 % (0.0-10.0) H 07/31/16 05:50 Eos % (Auto) 2.3 % (0.0-4.0) 07/31/16 05:50 Baso % (Auto) 0.6 % (0.0-2.0) 07/31/16 05:50 Neut # 4.0 K/uL (1.8-7.0) 07/31/16 05:50 Lymph # 2.0 K/uL (1.0-4.3) 07/31/16 05:50 [place] # 0.7 K/uL (0.0-0.8) 07/31/16 05:50 Eos # 0.2 K/uL (0.0-0.7) 07/31/16 05:50 Baso # 0.0 K/uL (0.0-0.2) 07/31/16 05:50 Sodium 137 mmol/l (132-148) 07/31/16 05:50 Potassium 4.1 MMOL/L (3.6-5.0) 07/31/16 05:50 Chloride 103 mmol/L (98-107) 07/31/16 05:50 Carbon Dioxide 25 mmol/L (22-30) 07/31/16 05:50 Anion Gap 13 (10-20) 07/31/16 05:50 BUN 24 mg/dl (9-20) H 07/31/16 05:50 Creatinine 1.0 mg/dL (0.8-1.5) 07/31/16 05:50 Est GFR ( Amer) > 60 07/31/16 05:50 Est GFR (Non-Af Amer) > 60 07/31/16 05:50 POC Glucose (mg/dL) 245 mg/dL (65-110) H 08/01/16 11:17 Random Glucose 194 mg/dL (75-110) H 07/31/16 05:50 Hemoglobin A1c 7.2 % (4.2-6.5) H 07/26/16 20:00 Lactic Acid 1.6 MMOL/L (0.7-2.1) 07/28/16 17:33 Calcium 9.1 mg/dL (8.4-10.2) 07/31/16 05:50 Total Bilirubin 0.5 mg/dl (0.2-1.3) 07/31/16 05:50 AST 60 U/L (17-59) H 07/31/16 05:50 ALT 96 U/L (21-72) H D 07/31/16 05:50 Alkaline Phosphatase 130 U/L (38-126) H D 07/31/16 05:50 Troponin I < 0.0120 ng/mL (0.00-0.120) 07/25/16 18:00 Total Protein 6.9 G/DL (6.3-8.2) 07/31/16 05:50 Albumin 3.6 g/dL (3.5-5.0) 07/31/16 05:50 Globulin 3.3 gm/dL (2.2-3.9) 07/31/16 05:50 Albumin/Globulin Ratio 1.1 (1.0-2.1) 07/31/16 05:50 Triglycerides 71 mg/DL (0-149) 07/26/16 05:40 Cholesterol 123 mg/dL (0-199) 07/26/16 05:40 LDL Cholesterol Direct 55 mg/dL (0-129) 07/26/16 05:40 HDL Cholesterol 45 MG/DL (30-70) 07/26/16 05:40 Vitamin B12 341 pg/mL (239-931) 07/26/16 20:00 Methylmalonic Acid 141 nmol/L (87-318) 07/28/16 13:30 Folate 12.0 ng/mL 07/26/16 20:00 Homocysteine 12.3 umol/L ( <11.4) H 07/26/16 20:00 Procalcitonin 0.13 NG/ML (0.19-0.49) L 07/30/16 05:30 TSH 3rd Generation 2.44 mIU/ML (0.46-4.68) 07/26/16 20:00 Urine Color Amalia (YELLOW) 07/27/16 14:23 Urine Clarity Clear (Clear) 07/27/16 14:23 Urine pH 5.0 (5.0-8.0) 07/27/16 14:23 Ur Specific [place] 1.025 (1.003-1.030) 07/27/16 14:23 Urine Protein 100 mg/dL (NEGATIVE) 07/27/16 14:23 Urine Glucose (UA) >=500 mg/dL (Normal) 07/27/16 14:23 Urine Ketones Trace mg/dL (NEGATIVE) 07/27/16 14:23 Urine Blood Negative (NEGATIVE) 07/27/16 14:23 Urine Nitrate Negative (NEGATIVE) 07/27/16 14:23 Urine Bilirubin Negative (NEGATIVE) 07/27/16 14:23 Urine Urobilinogen 4.0 mg/dL (0.2-1.0) 07/27/16 14:23 Ur Leukocyte Esterase Neg Viviane/uL (Negative) 07/27/16 14:23 Urine RBC (Auto) 5 /hpf (0-3) H 07/27/16 14:23 Urine Microscopic WBC 10 /hpf (0-5) H 07/27/16 14:23 Ur Squamous Epith Cells 2 /hpf (0-5) 07/27/16 14:23 Urine Bacteria Rare (<OCC) 07/27/16 14:23 HIV-1 Ab Rapid Screen Non reactive (NON REAC) 07/26/16 20:00 Influenza Typ A,B (EIA) Negative for flu a/b (NEGATIVE) 07/25/16 18:00 Attending/Attestation - Attestation I have personally seen and examined this patient.: Yes I have fully participated in the care of the patient.: Yes I have reviewed all pertinent clinical information, including history, physical exam and plan: Yes
[2016-08-01 16:17] VITALS: BP 132/66; PULSE 72; TEMP 97.5
== END 2016-08-01 17:00 | disposition home health service (06) | DRG 91 ==
LOC: H.ER 16:42 → H.ERHOLD 21:53 → H.TEL 07-26 00:13 → OBSVTOIN 07-26 16:47
PROVIDERS: ADMIT Family Medicine; ATTEND Family Medicine
DX: R26.81 Unsteadiness on feet (principal); J18.9 Pneumonia, unspecified organism; E11.9 Type 2 diabetes mellitus without complications; I10 Essential (primary) hypertension; E78.5 Hyperlipidemia, unspecified; E78.00 Pure hypercholesterolemia, unspecified; Z96.653 Presence of artificial knee joint, bilateral; Z87.891 Personal history of nicotine dependence; N40.1 Benign prostatic hyperplasia with lower urinary tract symptoms; R32 Unspecified urinary incontinence